=== PATIENT | male | born 1980 | race Caucasian/White ===

== ENCOUNTER 2016-11-27 12:27 | Emergency (ER) | payer OTHER ==
[~2016-11-27] VITALS: Ht 175.3 cm; Wt 65.8 kg
[~2016-11-27 12:27] MED LIST: ACETAMINOPHEN-1 EAC1 PO; AMOXICILLIN500 M1 PO; FLEXERIL PO; HYDROCODONE-AP1 EAC6 PO; HYDROXYZINE HCL25 M1 PO; IBUPROFEN 400400 M2 PO; IBUPROFEN 800800 M1 PO; LIDOCAINE VISC100 M1 SWISH&SPIT; NOHOMEMEDICATIONS; NORCO 5-325 TA1 EAC1 PO; NORCO 5-325 TA1 EACH PO; PENICILLIN VK250 MG PO; PENICILLIN VK500 M1 PO; PENICILLIN VK500 MG PO; TRAMADOL 50 MG50 MG PO; ULTRAM 50MG TAB50 MG PO; ZOFRAN ODT4 MG PO
[2016-11-27 12:29] VITALS: BP 123/87
[2016-11-27] MEDS ORDERED: PREDNISONE 20 M20 MG PO (13:25)
[2016-11-27] MEDS ORDERED: FLEXERIL PO (13:25)
[2016-11-27] MEDS ORDERED: NORCO 5-325 TA1 EACH PO (13:32)
[2016-12-20] MEDS ORDERED: HYDROCODONE-AP1 EAC6 PO (14:19)
[2016-12-20] MEDS ORDERED: FLEXERIL PO (14:19)
[2017-01-15] MEDS ORDERED: NAPROSYN500 MG PO (18:14)
[2017-01-15] MEDS ORDERED: ROBAXIN500 MG PO (18:14)
== END 2016-11-27 13:37 | disposition home or self-care (01) ==
LOC: ER 12:27
DX: M54.5 Low back pain (principal); F17.210 Nicotine dependence, cigarettes, uncomplicated; Z88.1 Allergy status to other antibiotic agents; Z88.6 Allergy status to analgesic agent

== ENCOUNTER 2018-05-25 14:23 | Emergency (ER) | payer OTHER ==
[~2018-05-25] VITALS: Ht 172.7 cm; Wt 56.7 kg
[~2018-05-25 14:23] MED LIST changes: +AMOXICILLIN 50500 MG PO; +DICLOFENAC SODI25 MG PO; +IBUPROFEN 600600 M1 PO; +LIDOCAINE VISC100 ML SWISH&SPIT; +NAPROSYN500 MG PO; +NEURONTIN 300300 M1 PO; +PENICILLIN V P500 MG PO; +PREDNISONE 20 M20 MG PO; +ROBAXIN500 MG PO
[2018-05-25 14:30] VITALS: BP 124/97
[2018-05-25] MEDS ORDERED: NORCO 5-325 TA1 EACH PO (14:48)
== END 2018-05-25 15:16 | disposition home or self-care (01) ==
LOC: ER 14:23
DX: M25.511 Pain in right shoulder (principal); F17.210 Nicotine dependence, cigarettes, uncomplicated; Z88.2 Allergy status to sulfonamides; Z88.8 Allergy status to other drugs, medicaments and biological substances

== ENCOUNTER 2018-07-13 15:03 | Emergency (ER) | payer OTHER | END 2018-07-13 18:18 | disposition home or self-care (01) | LOC: ER 15:03 | DX: M25.511 Pain in right shoulder (principal) ==

== ENCOUNTER 2018-08-12 15:41 | Emergency (ER) | payer OTHER ==
[~2018-08-12] VITALS: Ht 175.3 cm; Wt 61.2 kg
[2018-08-12 15:47] VITALS: BP 114/79
[2018-08-12] MEDS ORDERED: MOBIC7.5 MG PO (16:15)
[2018-08-12] MEDS ORDERED: NORCO 5-325 TA1 EACH PO (16:24)
[2018-08-13] MEDS ORDERED: NORFLEX100 MG PO (15:12)
== END 2018-08-12 17:00 | disposition home or self-care (01) ==
LOC: ER 15:41
DX: S46.911A Strain of unspecified muscle, fascia and tendon at shoulder and upper arm level, right arm, initial encounter (principal); F17.210 Nicotine dependence, cigarettes, uncomplicated; Z88.1 Allergy status to other antibiotic agents; Z88.5 Allergy status to narcotic agent; X50.9XXA Other and unspecified overexertion or strenuous movements or postures, initial encounter; Y93.89 Activity, other specified; Y92.89 Other specified places as the place of occurrence of the external cause; Y99.8 Other external cause status

== ENCOUNTER 2018-08-13 14:42 | Emergency (ER) | payer OTHER ==
[~2018-08-13] VITALS: Ht 175.3 cm; Wt 61.2 kg
[~2018-08-13 14:42] MED LIST changes: +MOBIC7.5 MG PO
[2018-08-13] MEDS ORDERED: NORFLEX100 MG PO (15:12)
[2018-08-13 15:43] VITALS: BP 131/76
== END 2018-08-13 15:43 | disposition home or self-care (01) ==
LOC: ER 14:42
DX: M25.511 Pain in right shoulder (principal); X58.XXXA Exposure to other specified factors, initial encounter; Y93.89 Activity, other specified; Y92.89 Other specified places as the place of occurrence of the external cause; Y99.8 Other external cause status

== ENCOUNTER 2018-08-30 16:32 | Emergency (ER) | payer OTHER ==
[~2018-08-30] VITALS: Ht 175.3 cm; Wt 63.5 kg
[~2018-08-30 16:32] MED LIST changes: +NORFLEX100 MG PO
[2018-08-30 16:38] VITALS: BP 126/82
[2018-08-30] MEDS ORDERED: MOBIC7.5 MG PO (17:22)
[2018-08-30] MEDS ORDERED: CYCLOBENZAPRINE5 MG PO (17:22)
== END 2018-08-30 17:31 | disposition home or self-care (01) ==
LOC: ER 16:32
DX: S46.001A Unspecified injury of muscle(s) and tendon(s) of the rotator cuff of right shoulder, initial encounter (principal); F17.210 Nicotine dependence, cigarettes, uncomplicated; Z88.6 Allergy status to analgesic agent; Z88.2 Allergy status to sulfonamides; Z88.8 Allergy status to other drugs, medicaments and biological substances; X58.XXXA Exposure to other specified factors, initial encounter; Y92.89 Other specified places as the place of occurrence of the external cause; Y99.0 Civilian activity done for income or pay; Y99.8 Other external cause status

== ENCOUNTER 2018-09-01 17:04 | Emergency (ER) | payer OTHER ==
[~2018-09-01] VITALS: Ht 175.3 cm; Wt 63.5 kg
[~2018-09-01 17:04] MED LIST changes: +CYCLOBENZAPRINE5 MG PO
[2018-09-01 17:07] VITALS: BP 127/84
[2018-09-01] MEDS ORDERED: PREDNISONE 20 M20 MG PO (17:20)
[2018-09-01] MEDS ORDERED: LIDOCAINE PAIN1 EACH TOP (17:24)
== END 2018-09-01 17:57 | disposition home or self-care (01) ==
LOC: ER 17:04
DX: S46.001A Unspecified injury of muscle(s) and tendon(s) of the rotator cuff of right shoulder, initial encounter (principal); F17.210 Nicotine dependence, cigarettes, uncomplicated; Z88.6 Allergy status to analgesic agent; Z88.2 Allergy status to sulfonamides; Z88.8 Allergy status to other drugs, medicaments and biological substances; X58.XXXA Exposure to other specified factors, initial encounter; Y92.89 Other specified places as the place of occurrence of the external cause; Y93.89 Activity, other specified; Y99.8 Other external cause status

== ENCOUNTER 2018-09-06 19:18 | Emergency (ER) | payer OTHER ==
[~2018-09-06] VITALS: Ht 175.3 cm; Wt 63.5 kg
[~2018-09-06 19:18] MED LIST changes: +LIDOCAINE PAIN1 EACH TOP
[2018-09-06] MEDS ORDERED: MOBIC7.5 MG PO (19:37)
[2018-09-06] MEDS ORDERED: AMOXICILLIN 50500 MG PO (19:37)
[2018-09-06 19:58] VITALS: BP 145/80
== END 2018-09-06 19:58 | disposition home or self-care (01) ==
LOC: ER 19:18
DX: K02.9 Dental caries, unspecified (principal); F17.210 Nicotine dependence, cigarettes, uncomplicated; Z88.6 Allergy status to analgesic agent; Z88.2 Allergy status to sulfonamides; Z88.8 Allergy status to other drugs, medicaments and biological substances

== ENCOUNTER 2018-10-02 12:14 | Emergency (ER) | payer OTHER ==
[~2018-10-02] VITALS: Ht 172.7 cm; Wt 61.2 kg
[2018-10-02] MEDS ORDERED: IBUPROFEN 200200 M1 PO (12:18)
[2018-10-02] MEDS ORDERED: MOBIC15 MG PO (14:15)
[2018-10-02] MEDS ORDERED: AMOXICILLIN 50500 MG PO (14:15)
[2018-10-02 14:50] VITALS: BP 137/78
== END 2018-10-02 14:51 | disposition home or self-care (01) ==
LOC: ER 12:14
DX: K08.89 Other specified disorders of teeth and supporting structures (principal); F17.210 Nicotine dependence, cigarettes, uncomplicated; Z88.2 Allergy status to sulfonamides; Z88.8 Allergy status to other drugs, medicaments and biological substances

== ENCOUNTER 2018-10-29 12:44 | Emergency (ER) | payer OTHER ==
[~2018-10-29] VITALS: Ht 175.3 cm; Wt 59.0 kg
[2018-10-29 12:44] VITALS: BP 124/76
[~2018-10-29 12:44] MED LIST changes: +IBUPROFEN 200200 M1 PO; +MOBIC15 MG PO
[2018-10-29] MEDS ORDERED: NORCO 5-325 TA1 EACH PO (13:23)
[2018-10-29] MEDS ORDERED: CLEOCIN HCL150 MG PO (13:23)
== END 2018-10-29 13:31 | disposition home or self-care (01) ==
LOC: ER 12:44
DX: L03.113 Cellulitis of right upper limb (principal); B95.4 Other streptococcus as the cause of diseases classified elsewhere; Z88.8 Allergy status to other drugs, medicaments and biological substances

== ENCOUNTER → 2018-11-02 | Emergency (ER) | payer OTHER ==
[~2018-11-02] MED LIST changes: +CLEOCIN HCL150 MG PO
== END ==
LOC: ER 14:45
DX: Z53.21 Procedure and treatment not carried out due to patient leaving prior to being seen by health care provider (principal)

== ENCOUNTER 2018-11-03 14:33 | Emergency (ER) | payer OTHER ==
[~2018-11-03] VITALS: Ht 172.7 cm; Wt 61.2 kg
[2018-11-03 16:13] VITALS: BP 129/76
== END 2018-11-03 18:24 | disposition home or self-care (01) ==
LOC: ER 14:33
DX: M79.641 Pain in right hand (principal); F17.210 Nicotine dependence, cigarettes, uncomplicated; Z88.6 Allergy status to analgesic agent; Z88.2 Allergy status to sulfonamides

== ENCOUNTER 2018-11-28 18:04 | Emergency (ER) | payer OTHER ==
[~2018-11-28] VITALS: Ht 175.3 cm; Wt 61.2 kg
[2018-11-28] MEDS ORDERED: TYLENOL EXTRA500 MG PO (18:11)
[2018-11-28] MEDS ORDERED: IBUPROFEN 600600 M1 PO (18:11)
[2018-11-28] MEDS ORDERED: KEFLEX500 M1 PO (18:46)
[2018-11-28] MEDS ORDERED: NAPROSYN500 MG PO (18:46)
[2018-11-28 18:50] VITALS: BP 131/74
== END 2018-11-28 18:51 | disposition home or self-care (01) ==
LOC: ER 18:04
DX: L02.216 Cutaneous abscess of umbilicus (principal); F17.210 Nicotine dependence, cigarettes, uncomplicated; Z88.6 Allergy status to analgesic agent; Z88.2 Allergy status to sulfonamides; Z88.8 Allergy status to other drugs, medicaments and biological substances

== ENCOUNTER 2018-11-30 23:29 | Emergency (ER) | payer OTHER ==
[~2018-11-30] VITALS: Ht 175.3 cm; Wt 61.2 kg
[~2018-11-30 23:29] MED LIST changes: +KEFLEX500 M1 PO; +TYLENOL EXTRA500 MG PO
[2018-12-01 00:06] VITALS: BP 123/85
== END 2018-12-01 01:40 | disposition home or self-care (01) ==
LOC: ER 23:29
DX: Z53.21 Procedure and treatment not carried out due to patient leaving prior to being seen by health care provider (principal)

== ENCOUNTER 2018-12-31 13:41 | Emergency (ER) | payer OTHER ==
[~2018-12-31] VITALS: Ht 172.7 cm; Wt 59.0 kg
[2018-12-31 13:41] VITALS: BP 125/92
[2018-12-31] MEDS ORDERED: IBUPROFEN 600600 M1 PO (14:07)
[2018-12-31] MEDS ORDERED: NORCO 5-325 TA1 EACH PO (14:07)
[2018-12-31] MEDS ORDERED: CLEOCIN HCL150 MG PO (14:07)
== END 2018-12-31 14:20 | disposition home or self-care (01) ==
LOC: ER 13:41
DX: L02.32 Furuncle of buttock (principal); F17.210 Nicotine dependence, cigarettes, uncomplicated; Z88.2 Allergy status to sulfonamides; Z88.8 Allergy status to other drugs, medicaments and biological substances

== ENCOUNTER 2019-01-21 14:41 | Emergency (ER) | payer OTHER ==
[~2019-01-21] VITALS: Ht 172.7 cm; Wt 63.5 kg
[2019-01-21] MEDS ORDERED: IBUPROFEN 400400 M2 PO (15:08)
[2019-01-21 15:31] VITALS: BP 122/84
== END 2019-01-21 15:10 | disposition home or self-care (01) ==
LOC: ER 14:41
DX: M75.51 Bursitis of right shoulder (principal); F17.210 Nicotine dependence, cigarettes, uncomplicated; Z88.2 Allergy status to sulfonamides; Z88.6 Allergy status to analgesic agent; Z88.1 Allergy status to other antibiotic agents

== ENCOUNTER 2019-01-25 03:29 | Emergency (ER) | payer OTHER ==
[~2019-01-25] VITALS: Ht 172.7 cm; Wt 63.5 kg
[2019-01-25 04:40] VITALS: BP 151/82
[2019-01-26] MEDS ORDERED: MOBIC7.5 MG PO (14:28)
== END 2019-01-25 04:45 | disposition home or self-care (01) ==
LOC: ER 03:29
DX: K08.89 Other specified disorders of teeth and supporting structures (principal); F17.210 Nicotine dependence, cigarettes, uncomplicated; Z88.1 Allergy status to other antibiotic agents; Z88.5 Allergy status to narcotic agent

== ENCOUNTER 2019-01-26 14:19 | Emergency (ER) | payer OTHER ==
[~2019-01-26] VITALS: Ht 172.7 cm; Wt 63.5 kg
[2019-01-26] MEDS ORDERED: MOBIC7.5 MG PO (14:28)
[2019-01-26 15:35] VITALS: BP 134/81
== END 2019-01-26 14:45 | disposition home or self-care (01) ==
LOC: ER 14:19
DX: M27.3 Alveolitis of jaws (principal); K08.89 Other specified disorders of teeth and supporting structures; F17.210 Nicotine dependence, cigarettes, uncomplicated; Z88.1 Allergy status to other antibiotic agents; Z88.5 Allergy status to narcotic agent

== ENCOUNTER 2019-03-26 19:16 | Emergency (ER) | payer OTHER ==
[~2019-03-26] VITALS: Ht 175.3 cm; Wt 65.8 kg
[2019-03-26 19:35] VITALS: BP 126/87
[2019-03-26] MEDS ORDERED: NAPROSYN500 MG PO (19:53)
== END 2019-03-26 20:09 | disposition home or self-care (01) ==
LOC: ER 19:16
DX: S60.221A Contusion of right hand, initial encounter (principal); G89.29 Other chronic pain; F17.210 Nicotine dependence, cigarettes, uncomplicated; Z88.1 Allergy status to other antibiotic agents; Z88.5 Allergy status to narcotic agent; Z88.6 Allergy status to analgesic agent; W22.8XXA Striking against or struck by other objects, initial encounter; Y93.89 Activity, other specified; Y92.89 Other specified places as the place of occurrence of the external cause; Y99.8 Other external cause status

== ENCOUNTER 2019-04-13 21:08 | Emergency (ER) | payer OTHER ==
[~2019-04-13] VITALS: Ht 175.3 cm; Wt 63.5 kg
[2019-04-13] MEDS ORDERED: NOHOMEMEDICATIONS (21:16)
[2019-04-13] MEDS ORDERED: LIDOPAC1 EACH (21:32)
[2019-04-13] MEDS ORDERED: IBUPROFEN 200200 M1 PO (21:32)
[2019-04-13] MEDS ORDERED: ACETAMINOPHEN-1 EAC1 PO (22:20)
[2019-04-13] MEDS ORDERED: NAPROSYN500 MG PO (22:20)
[2019-04-13 22:53] VITALS: BP 145/97
== END 2019-04-13 22:53 | disposition home or self-care (01) ==
LOC: ER 21:08
DX: S43.491A Other sprain of right shoulder joint, initial encounter (principal); S50.01XA Contusion of right elbow, initial encounter; F17.210 Nicotine dependence, cigarettes, uncomplicated; Z88.6 Allergy status to analgesic agent; Z88.2 Allergy status to sulfonamides; Z88.1 Allergy status to other antibiotic agents; Z88.8 Allergy status to other drugs, medicaments and biological substances; W22.8XXA Striking against or struck by other objects, initial encounter; Y93.89 Activity, other specified; Y92.89 Other specified places as the place of occurrence of the external cause; Y99.8 Other external cause status

== ENCOUNTER 2019-07-15 12:40 | Emergency (ER) | payer OTHER ==
[~2019-07-15] VITALS: Ht 172.7 cm; Wt 63.5 kg
[~2019-07-15 12:40] MED LIST changes: +LIDOPAC1 EACH
[2019-07-15 13:08] VITALS: BP 128/74
[2019-07-15] MEDS ORDERED: MOBIC7.5 MG PO (13:12)
== END 2019-07-15 13:20 | disposition home or self-care (01) ==
LOC: ER 12:40
DX: M54.30 Sciatica, unspecified side (principal); F17.210 Nicotine dependence, cigarettes, uncomplicated; Z88.1 Allergy status to other antibiotic agents; Z88.6 Allergy status to analgesic agent

== ENCOUNTER 2019-09-10 12:36 | Emergency (ER) | payer OTHER ==
[~2019-09-10] VITALS: Ht 172.7 cm; Wt 63.5 kg
[2019-09-10 12:37] VITALS: BP 123/79
== END 2019-09-10 13:23 | disposition left against medical advice (07) ==
LOC: ER 12:36
DX: Z53.21 Procedure and treatment not carried out due to patient leaving prior to being seen by health care provider (principal)

== ENCOUNTER 2019-12-04 12:20 | Emergency (ER) | payer OTHER ==
[~2019-12-04] VITALS: Ht 172.7 cm; Wt 63.5 kg
[2019-12-04] MEDS ORDERED: NORCO 5-325 TA1 EAC1 PO (13:40)
[2019-12-04 14:02] VITALS: BP 133/74
== END 2019-12-04 14:03 | disposition home or self-care (01) ==
LOC: ER 12:20
DX: M25.511 Pain in right shoulder (principal); F17.210 Nicotine dependence, cigarettes, uncomplicated; Z98.890 Other specified postprocedural states; Z88.8 Allergy status to other drugs, medicaments and biological substances; Z88.6 Allergy status to analgesic agent

== ENCOUNTER 2019-12-08 13:20 | Emergency (ER) | payer OTHER ==
[~2019-12-08] VITALS: Ht 172.7 cm; Wt 63.5 kg
[2019-12-08] MEDS ORDERED: NORCO 5-325 TA1 EAC1 PO (14:20)
[2019-12-08] MEDS ORDERED: PREDNISONE 20 M20 MG PO (14:20)
[2019-12-08] MEDS ORDERED: NAPROSYN500 MG PO (14:20)
[2019-12-08] MEDS ORDERED: METHOCARBAMOL500 M2 PO (14:20)
[2019-12-08 14:28] VITALS: BP 132/93
== END 2019-12-08 14:38 | disposition home or self-care (01) ==
LOC: ER 13:20
DX: M75.21 Bicipital tendinitis, right shoulder (principal); F17.210 Nicotine dependence, cigarettes, uncomplicated; Z98.890 Other specified postprocedural states; Z88.2 Allergy status to sulfonamides; Z88.6 Allergy status to analgesic agent; Z88.8 Allergy status to other drugs, medicaments and biological substances

== ENCOUNTER 2019-12-15 17:54 | Emergency (ER) | payer OTHER ==
[~2019-12-15] VITALS: Ht 172.7 cm; Wt 65.8 kg
[~2019-12-15 17:54] MED LIST changes: +METHOCARBAMOL500 M2 PO
[2019-12-15 18:10] VITALS: BP 132/79
[2019-12-15] MEDS ORDERED: NAPROSYN500 MG PO (18:33)
[2019-12-16] MEDS ORDERED: NORCO 5-325 TA1 EAC1 PO (21:19)
== END 2019-12-15 18:49 | disposition home or self-care (01) ==
LOC: ER 17:54
DX: M25.511 Pain in right shoulder (principal); F17.210 Nicotine dependence, cigarettes, uncomplicated; Z76.0 Encounter for issue of repeat prescription; Z88.6 Allergy status to analgesic agent; Z88.1 Allergy status to other antibiotic agents; Z88.2 Allergy status to sulfonamides; Z88.8 Allergy status to other drugs, medicaments and biological substances

== ENCOUNTER 2019-12-16 20:27 | Emergency (ER) | payer OTHER ==
[~2019-12-16] VITALS: Ht 172.7 cm; Wt 63.5 kg
[2019-12-16] MEDS ORDERED: NORCO 5-325 TA1 EAC1 PO (21:19)
[2019-12-16 21:39] VITALS: BP 123/85
== END 2019-12-16 21:40 | disposition home or self-care (01) ==
LOC: ER 20:27
DX: M25.511 Pain in right shoulder (principal); F17.210 Nicotine dependence, cigarettes, uncomplicated; Z88.6 Allergy status to analgesic agent; Z88.2 Allergy status to sulfonamides; Z88.8 Allergy status to other drugs, medicaments and biological substances

== ENCOUNTER 2020-01-04 00:31 | Emergency (ER) | payer OTHER ==
[~2020-01-04] VITALS: Ht 170.2 cm; Wt 63.5 kg
[2020-01-04 00:31] VITALS: BP 122/88
== END 2020-01-04 01:30 | disposition home or self-care (01) ==
LOC: ER 00:31
DX: M54.31 Sciatica, right side (principal); F17.200 Nicotine dependence, unspecified, uncomplicated; Z88.1 Allergy status to other antibiotic agents; Z88.5 Allergy status to narcotic agent; Z88.8 Allergy status to other drugs, medicaments and biological substances

== ENCOUNTER 2020-01-21 18:08 | Emergency (ER) | payer OTHER ==
[~2020-01-21] VITALS: Ht 172.7 cm; Wt 63.5 kg
[2020-01-21 18:09] VITALS: BP 132/84
[2020-01-21] MEDS ORDERED: CLEOCIN HCL150 MG PO (18:35)
== END 2020-01-21 18:40 | disposition home or self-care (01) ==
LOC: ER 18:08
DX: L02.411 Cutaneous abscess of right axilla (principal); F17.210 Nicotine dependence, cigarettes, uncomplicated

== ENCOUNTER 2020-01-24 16:41 | Emergency (ER) | payer OTHER ==
[~2020-01-24] VITALS: Ht 172.7 cm; Wt 63.5 kg
[2020-01-24] MEDS ORDERED: NORCO 5-325 TA1 EAC1 PO (17:52)
[2020-01-24 17:57] VITALS: BP 124/77
== END 2020-01-24 17:57 | disposition home or self-care (01) ==
LOC: ER 16:41
DX: L02.411 Cutaneous abscess of right axilla (principal); F17.210 Nicotine dependence, cigarettes, uncomplicated; Z88.6 Allergy status to analgesic agent; Z88.8 Allergy status to other drugs, medicaments and biological substances; Z88.1 Allergy status to other antibiotic agents

== ENCOUNTER 2020-01-27 14:42 | Emergency (ER) | payer OTHER ==
[~2020-01-27] VITALS: Ht 172.7 cm; Wt 63.5 kg
[2020-01-27 14:48] VITALS: BP 123/77
[2020-01-27] MEDS ORDERED: NAPROSYN500 MG PO (15:12)
[2020-01-27] MEDS ORDERED: NORCO 5-325 TA1 EAC1 PO (15:25)
== END 2020-01-27 15:30 | disposition home or self-care (01) ==
LOC: ER 14:42
DX: L02.411 Cutaneous abscess of right axilla (principal); F17.210 Nicotine dependence, cigarettes, uncomplicated; Z79.2 Long term (current) use of antibiotics; Z79.899 Other long term (current) drug therapy; Z88.8 Allergy status to other drugs, medicaments and biological substances; Z88.2 Allergy status to sulfonamides; Z88.6 Allergy status to analgesic agent

== ENCOUNTER 2020-03-01 21:21 | Emergency (ER) | payer OTHER ==
[~2020-03-01] VITALS: Ht 172.7 cm; Wt 63.5 kg
[2020-03-01 21:24] VITALS: BP 124/79
[2020-03-01] MEDS ORDERED: MEDROLDOSEPACK PO (21:57)
[2020-03-01] MEDS ORDERED: NORCO 10-325 T1 EACH PO (21:57)
== END 2020-03-01 22:08 | disposition home or self-care (01) ==
LOC: ER 21:21
DX: M54.31 Sciatica, right side (principal); F17.210 Nicotine dependence, cigarettes, uncomplicated; Z88.6 Allergy status to analgesic agent; Z88.2 Allergy status to sulfonamides; Z88.8 Allergy status to other drugs, medicaments and biological substances

== ENCOUNTER 2020-03-03 21:54 | Emergency (ER) | payer OTHER ==
[~2020-03-03] VITALS: Ht 172.7 cm; Wt 63.5 kg
[~2020-03-03 21:54] MED LIST changes: +MEDROLDOSEPACK PO; +NORCO 10-325 T1 EACH PO
[2020-03-03] MEDS ORDERED: SALONPAS1 EACH (22:02)
[2020-03-03] MEDS ORDERED: ACETAMINOPHEN PO (22:02)
[2020-03-03 22:53] VITALS: BP 127/82
== END 2020-03-03 22:56 | disposition home or self-care (01) ==
LOC: ER 21:54
DX: M54.31 Sciatica, right side (principal); F17.210 Nicotine dependence, cigarettes, uncomplicated; Z88.2 Allergy status to sulfonamides; Z88.6 Allergy status to analgesic agent; Z88.1 Allergy status to other antibiotic agents

== ENCOUNTER 2020-04-30 04:18 | Emergency (ER) | payer OTHER ==
[~2020-04-30] VITALS: Ht 172.7 cm; Wt 63.5 kg
[~2020-04-30 04:18] MED LIST changes: +ACETAMINOPHEN PO; +SALONPAS1 EACH
[2020-04-30] MEDS ORDERED: MELOXICAM15 MG PO (04:30)
[2020-04-30] MEDS ORDERED: MEDROLDOSEPACK PO (04:55)
[2020-04-30] MEDS ORDERED: NORCO 5-325 TA1 EAC1 PO (04:55)
[2020-04-30 05:01] VITALS: BP 143/77
== END 2020-04-30 05:02 | disposition home or self-care (01) ==
LOC: ER 04:18
DX: M54.41 Lumbago with sciatica, right side (principal); F17.210 Nicotine dependence, cigarettes, uncomplicated; Z88.5 Allergy status to narcotic agent; Z88.2 Allergy status to sulfonamides; Z88.1 Allergy status to other antibiotic agents; Z79.899 Other long term (current) drug therapy

== ENCOUNTER 2020-06-30 20:25 | Emergency (ER) | payer OTHER ==
[~2020-06-30] VITALS: Ht 172.7 cm; Wt 63.5 kg
[~2020-06-30 20:25] MED LIST changes: +MELOXICAM15 MG PO
[2020-06-30 20:31] VITALS: BP 153/86
[2020-06-30] MEDS ORDERED: PENICILLIN V P500 MG PO (20:37)
[2020-06-30] MEDS ORDERED: NORCO 5-325 TA1 EAC2 PO (20:37)
== END 2020-06-30 20:57 | disposition home or self-care (01) ==
LOC: ER 20:25
DX: K04.7 Periapical abscess without sinus (principal); R51 Headache; F17.210 Nicotine dependence, cigarettes, uncomplicated; Z98.890 Other specified postprocedural states; Z88.8 Allergy status to other drugs, medicaments and biological substances; Z88.2 Allergy status to sulfonamides; Z88.6 Allergy status to analgesic agent

== ENCOUNTER 2020-07-20 12:44 | Emergency (ER) | payer OTHER ==
[~2020-07-20] VITALS: Ht 172.7 cm; Wt 63.5 kg
[~2020-07-20 12:44] MED LIST changes: +NORCO 5-325 TA1 EAC2 PO
[2020-07-20] MEDS ORDERED: NORCO 5-325 TA1 EAC2 PO ×2 (14:22→14:27)
[2020-07-20] MEDS ORDERED: PENICILLIN V P500 MG PO ×2 (14:22→14:27)
[2020-07-20 14:30] VITALS: BP 133/97
== END 2020-07-20 14:30 | disposition home or self-care (01) ==
LOC: ER 12:44
DX: K04.7 Periapical abscess without sinus (principal); R51 Headache; K03.81 Cracked tooth; F17.210 Nicotine dependence, cigarettes, uncomplicated; Z98.890 Other specified postprocedural states; Z88.8 Allergy status to other drugs, medicaments and biological substances; Z88.2 Allergy status to sulfonamides; Z88.6 Allergy status to analgesic agent

== ENCOUNTER → 2020-09-23 | Emergency (ER) | payer OTHER ==
[~2020-09-23] VITALS: Ht 172.7 cm; Wt 63.5 kg
[~2020-09-23] MED LIST changes: +IBUPROFEN25 GM PO; +PERIDEX 0.12%473 M1 SWISH&SPIT
[2020-09-23 20:26] VITALS: BP 141/92
== END ==
LOC: ER 20:24
DX: K04.7 Periapical abscess without sinus (principal); F17.210 Nicotine dependence, cigarettes, uncomplicated; Z88.1 Allergy status to other antibiotic agents; Z98.890 Other specified postprocedural states; Z88.8 Allergy status to other drugs, medicaments and biological substances; Z88.2 Allergy status to sulfonamides; Z88.6 Allergy status to analgesic agent; Z79.899 Other long term (current) drug therapy

== ENCOUNTER 2020-10-10 21:37 | Emergency (ER) | payer OTHER ==
[~2020-10-10] VITALS: Ht 170.2 cm; Wt 63.5 kg
[2020-10-10] MEDS ORDERED: IBUPROFEN 600600 M1 PO (22:03)
[2020-10-10] MEDS ORDERED: NORCO 5-325 TA1 EAC2 PO (22:03)
[2020-10-10] MEDS ORDERED: AMOXICILLIN 50500 M1 PO (22:03)
[2020-10-10 22:25] VITALS: BP 127/87
== END 2020-10-10 22:34 | disposition home or self-care (01) ==
LOC: ER 21:37
DX: K05.10 Chronic gingivitis, plaque induced (principal); F17.210 Nicotine dependence, cigarettes, uncomplicated; Z88.8 Allergy status to other drugs, medicaments and biological substances; Z88.2 Allergy status to sulfonamides; Z88.6 Allergy status to analgesic agent

== ENCOUNTER 2020-10-28 05:19 | Emergency (ER) | payer OTHER ==
[~2020-10-28] VITALS: Ht 172.7 cm; Wt 61.2 kg
[~2020-10-28 05:19] MED LIST changes: +AMOXICILLIN 50500 M1 PO
[2020-10-28 05:20] VITALS: BP 126/79
[2020-10-28] MEDS ORDERED: AMOXICILLIN 50500 M1 PO (05:30)
[2020-10-28] MEDS ORDERED: NAPROSYN500 MG PO (05:30)
[2020-10-28] MEDS ORDERED: NORCO 5-325 TA1 EAC2 PO (05:37)
== END 2020-10-28 05:47 | disposition home or self-care (01) ==
LOC: ER 05:19
DX: G89.29 Other chronic pain (principal); K08.89 Other specified disorders of teeth and supporting structures; K05.00 Acute gingivitis, plaque induced; F17.210 Nicotine dependence, cigarettes, uncomplicated; Z79.899 Other long term (current) drug therapy

== ENCOUNTER 2020-12-04 21:29 | Emergency (ER) | payer OTHER ==
[~2020-12-04] VITALS: Ht 172.7 cm; Wt 63.5 kg
[2020-12-04] MEDS ORDERED: IBU800 MG PO (21:38)
[2020-12-04] MEDS ORDERED: TYLENOL EXTRA500 MG PO (21:38)
[2020-12-04] MEDS ORDERED: PENICILLIN V P500 MG PO (22:23)
[2020-12-04] MEDS ORDERED: HYDROCODON-ACE1 EAC7 PO (22:23)
[2020-12-04 22:30] VITALS: BP 142/96
== END 2020-12-04 22:34 | disposition home or self-care (01) ==
LOC: ER 21:29
DX: R22.0 Localized swelling, mass and lump, head (principal); K08.89 Other specified disorders of teeth and supporting structures; F17.210 Nicotine dependence, cigarettes, uncomplicated; Z88.6 Allergy status to analgesic agent; Z88.1 Allergy status to other antibiotic agents; Z88.8 Allergy status to other drugs, medicaments and biological substances; Z98.890 Other specified postprocedural states

== ENCOUNTER 2021-01-09 12:34 | Emergency (ER) | payer OTHER ==
[~2021-01-09] VITALS: Ht 172.7 cm; Wt 63.5 kg
[~2021-01-09 12:34] MED LIST changes: +HYDROCODON-ACE1 EAC7 PO; +IBU800 MG PO
[2021-01-09 12:39] VITALS: BP 146/97
[2021-01-09] MEDS ORDERED: DICLOFENAC SOD50 M1 PO (13:01)
[2021-01-09] MEDS ORDERED: PENICILLIN VK500 M1 PO (13:01)
== END 2021-01-09 13:54 | disposition home or self-care (01) ==
LOC: ER 12:34
DX: S02.5XXA Fracture of tooth (traumatic), initial encounter for closed fracture (principal); F17.210 Nicotine dependence, cigarettes, uncomplicated; Z79.2 Long term (current) use of antibiotics; Z79.899 Other long term (current) drug therapy; Z88.2 Allergy status to sulfonamides; Z88.8 Allergy status to other drugs, medicaments and biological substances; X58.XXXA Exposure to other specified factors, initial encounter; Y93.89 Activity, other specified; Y92.89 Other specified places as the place of occurrence of the external cause; Y99.8 Other external cause status

== ENCOUNTER 2021-02-16 20:16 | Emergency (ER) | payer OTHER ==
[~2021-02-16] VITALS: Ht 172.7 cm; Wt 59.0 kg
[~2021-02-16 20:16] MED LIST changes: +DICLOFENAC SOD50 M1 PO
[2021-02-16 20:19] VITALS: BP 133/91
[2021-02-16] MEDS ORDERED: MOBIC7.5 MG PO (20:32)
[2021-02-16] MEDS ORDERED: PENICILLIN VK500 M1 PO (20:32)
== END 2021-02-16 21:03 | disposition home or self-care (01) ==
LOC: ER 20:16
DX: K08.89 Other specified disorders of teeth and supporting structures (principal); R51.9 Headache, unspecified; K05.10 Chronic gingivitis, plaque induced; F17.210 Nicotine dependence, cigarettes, uncomplicated; Z79.899 Other long term (current) drug therapy; Z88.2 Allergy status to sulfonamides; Z88.8 Allergy status to other drugs, medicaments and biological substances

== ENCOUNTER 2021-05-15 23:30 | Emergency (ER) | payer OTHER ==
[~2021-05-15] VITALS: Ht 172.7 cm; Wt 59.0 kg
[2021-05-15 23:33] VITALS: BP 153/108
== END 2021-05-16 01:06 | disposition left against medical advice (07) ==
LOC: ER 23:30
DX: Z53.21 Procedure and treatment not carried out due to patient leaving prior to being seen by health care provider (principal)

== ENCOUNTER 2021-07-31 13:15 | Emergency (ER) | payer OTHER ==
[~2021-07-31] VITALS: Ht 175.3 cm; Wt 63.5 kg
[2021-07-31] MEDS ORDERED: FLEXERIL PO (14:00)
[2021-07-31] MEDS ORDERED: PREDNISONE 20 M20 MG PO (14:00)
[2021-07-31 14:30] VITALS: BP 143/94
== END 2021-07-31 14:30 | disposition home or self-care (01) ==
LOC: ER 13:15
DX: M54.5 Low back pain (principal); F17.210 Nicotine dependence, cigarettes, uncomplicated; Z98.890 Other specified postprocedural states; Z88.1 Allergy status to other antibiotic agents; Z88.2 Allergy status to sulfonamides; Z88.6 Allergy status to analgesic agent

== ENCOUNTER 2021-09-14 18:27 | Emergency (ER) | payer OTHER ==
[~2021-09-14] VITALS: Ht 172.7 cm; Wt 63.5 kg
[2021-09-14 18:29] VITALS: BP 129/97
[2021-09-15] MEDS ORDERED: NORCO5 PO (12:14)
[2021-09-15] MEDS ORDERED: CYCLOBENZAPRINE5 MG PO (12:14)
== END 2021-09-14 21:47 | disposition home or self-care (01) ==
LOC: ER 18:27
DX: R07.89 Other chest pain (principal); M54.50 Low back pain, unspecified; M25.512 Pain in left shoulder; Z53.21 Procedure and treatment not carried out due to patient leaving prior to being seen by health care provider; Z98.890 Other specified postprocedural states; Z88.2 Allergy status to sulfonamides; Z88.6 Allergy status to analgesic agent; Z88.5 Allergy status to narcotic agent; Z88.8 Allergy status to other drugs, medicaments and biological substances

== ENCOUNTER 2021-09-15 10:56 | Emergency (ER) | payer OTHER ==
[~2021-09-15] VITALS: Ht 172.7 cm; Wt 63.5 kg
[2021-09-15 11:02] VITALS: BP 136/99
[2021-09-15] MEDS ORDERED: CYCLOBENZAPRINE5 MG PO (12:14)
[2021-09-15] MEDS ORDERED: NORCO5 PO (12:14)
== END 2021-09-15 12:40 | disposition home or self-care (01) ==
LOC: ER 10:56
DX: S20.211A Contusion of right front wall of thorax, initial encounter (principal); M54.50 Low back pain, unspecified; M25.511 Pain in right shoulder; F17.210 Nicotine dependence, cigarettes, uncomplicated; Z98.890 Other specified postprocedural states; Z88.8 Allergy status to other drugs, medicaments and biological substances; Z88.2 Allergy status to sulfonamides; Z88.6 Allergy status to analgesic agent; V49.9XXA Car occupant (driver) (passenger) injured in unspecified traffic accident, initial encounter; Y93.89 Activity, other specified; Y92.89 Other specified places as the place of occurrence of the external cause; Y99.8 Other external cause status